=== PATIENT | female | born 1935 | race Caucasian/White ===

== ENCOUNTER → 2017-08-05 | Outpatient (CLI) | payer OTHER, MEDICAID ==
[~2017-08-05] MED LIST: CALCIUM 500 +1 EAC1 PO; CIPRO500 MG PO; COUMADIN 3 MG TA3 M1; COUMADIN 3 MG TA3 M1 PO; FLAGYL500 MG PO; HEART MEDICATION; IRON325 PO; KLOR-CON 10 ER10 MEQ PO; KLOR-CON 1010 MEQ PO; LASIX 20 MG TAB20 MG PO; LISINOPRIL-HCT1 EAC1 PO; ONDANSETRON HCL4 M2 PO; PRILOSEC40 MG PO; TYLENOL325 MG PO
== END ==
LOC: M.WC 00:03
DX: L89.892 Pressure ulcer of other site, stage 2 (principal); I48.91 Unspecified atrial fibrillation; Z86.73 Personal history of transient ischemic attack (TIA), and cerebral infarction without residual deficits; I10 Essential (primary) hypertension; Z86.718 Personal history of other venous thrombosis and embolism; M19.90 Unspecified osteoarthritis, unspecified site